=== PATIENT | male | born 1970 | race Two or more races ===

== ENCOUNTER 2018-12-04 11:42 | Emergency (ER) | payer MEDICAID ==
[~2018-12-04] VITALS: Ht 170.2 cm; Wt 79.0 kg
[2018-12-04] MEDS ORDERED: ACETAMINOPHEN 325MG TABLET PO ONE (16:30)
[2018-12-04 17:12] VITALS: BP 113/75
== END 2018-12-04 17:15 | disposition home or self-care (01) ==
LOC: ER 11:42
DX: M54.6 Pain in thoracic spine (principal); R05 Cough; F17.200 Nicotine dependence, unspecified, uncomplicated
CPT/HCPCS: 71045; 99283

== ENCOUNTER 2019-06-11 07:18 | Emergency (ER) | payer SELFPAY ==
[~2019-06-11] VITALS: Ht 162.6 cm; Wt 78.0 kg
[2019-06-11] MEDS ORDERED: IBUPROFEN 600MG TABLET PO ONE (08:00)
[2019-06-11 09:24] VITALS: BP 153/91
== END 2019-06-11 09:25 | disposition home or self-care (01) ==
LOC: ER 07:18
DX: J02.9 Acute pharyngitis, unspecified (principal); L53.8 Other specified erythematous conditions
CPT/HCPCS: 87804; 99283

== ENCOUNTER 2020-01-15 11:19 | Emergency (ER) | payer SELFPAY ==
[~2020-01-15] VITALS: Ht 172.7 cm; Wt 86.0 kg
[2020-01-15 13:24] VITALS: BP 155/97
[2020-01-18] MEDS ORDERED: HYDROCODONE/ACETAMINOPHEN 5/325MG TABLET PO STA (03:35)
[2020-01-18] MEDS ORDERED: KETOROLAC 60MG/2ML VIAL IM STA (03:35)
== END 2020-01-15 13:25 | disposition home or self-care (01) ==
LOC: ER 11:19
DX: J02.9 Acute pharyngitis, unspecified (principal)
CPT/HCPCS: 87070; 87430; 99283

== ENCOUNTER 2020-07-22 09:30 | Emergency (ER) | payer MEDICAID ==
[~2020-07-22] VITALS: Ht 165.1 cm; Wt 91.0 kg
[2020-07-22 09:32] VITALS: BP 190/115
[2020-07-22] MEDS ORDERED: HYDROCODONE/ACETAMINOPHEN 5/325MG TABLET PO ONE (10:15)
== END 2020-07-22 12:13 | disposition home or self-care (01) ==
LOC: ER 09:33
DX: K04.7 Periapical abscess without sinus (principal); K02.9 Dental caries, unspecified; E78.00 Pure hypercholesterolemia, unspecified; Z88.2 Allergy status to sulfonamides
CPT/HCPCS: 99283